=== PATIENT | male | born 1995 | race Caucasian/White ===

== ENCOUNTER 2019-03-10 02:03 | Emergency (ER) | payer OTHER ==
[~2019-03-10] VITALS: Ht 188 cm; Wt 120.5 kg
[2019-03-10] MEDS ORDERED: DOXYCYCLINE HYCLATE 100 MG TAB PO ONE (04:30)
[2019-03-10 04:37] VITALS: BP 127/73
== END 2019-03-10 04:55 | disposition home or self-care (01) ==
LOC: M ED 02:03
DX: S80.862A Insect bite (nonvenomous), left lower leg, initial encounter (principal); W57.XXXA Bitten or stung by nonvenomous insect and other nonvenomous arthropods, initial encounter; Y92.89 Other specified places as the place of occurrence of the external cause

== ENCOUNTER 2019-09-17 14:58 | Emergency (ER) | payer OTHER ==
[~2019-09-17] VITALS: Ht 188 cm; Wt 118.8 kg
[2019-09-17 15:45] LABS: BASO % 0.3 % (0.0-1.0); EOS % 0.2 % (0.0-3.0); HEMATOCRIT 45.4 % (42.0-52.0); HEMOGLOBIN 15.1 g/dl (13.5-17.5); LYMPH % 17.6 % (24.0-44.0); MEAN CORPUSCULAR HEMOGLOBIN 31.1 pg (27.0-33.0); MEAN CORPUSCULAR HGB CONC 33.3 g/dl (32.0-36.5); MEAN CORPUSCULAR VOLUME 93.6 fl (80.0-96.0); MONO # 0.4 10^3/uL (0.0-0.8); MONO % 6.5 % (0.0-5.0); NEUTROPHILS # 4.4 10^3/uL (1.5-8.5); NEUTROPHILS % 75.2 % (36.0-66.0); PLATELET COUNT, AUTOMATED 187 10^3/uL (150-450); RED BLOOD COUNT 4.85 10^6/uL (4.30-6.10); WHITE BLOOD COUNT 5.8 10^3/uL (4.0-10.0)
--- NOTE | 2019-09-17 16:04 | REP ---
CT brain: 09/17/2019. Indication: Syncope. Comparison: None. Technique: Unenhanced axial CT images of the brain were obtained from skull base to vertex. Findings: There is no acute intracranial hemorrhage, acute cortical infarction or hydrocephalous. Small CSF attenuating fluid collection is noted posterior to the left cerebellum. There is no significant fluid within the visualized paranasal sinuses/mastoid air cells. There is no shift of the midline structures. Impression: No acute intracranial process. Small focus of extra-axial low attenuation posterior to the left cerebellum most likely representing an arachnoid cyst. Electronically Signed by Kp Medina DO 09/17/2019 03:55 P
[2019-09-17 16:15] LABS: BLOOD UREA NITROGEN 16 MG/DL (7-18); CALCIUM LEVEL 9.6 MG/DL (8.5-10.1); CARBON DIOXIDE LEVEL 29 MEQ/L (21-32); CHLORIDE LEVEL 105 MEQ/L (98-107); CREATININE FOR GFR 1.07 MG/DL (0.70-1.30); FREE T4 0.89 NG/DL (0.76-1.46); GLOMERULAR FILTRATION RATE > 60.0 (>60); GLUCOSE, FASTING 95 MG/DL (70-100); MAGNESIUM LEVEL 2.1 MG/DL (1.8-2.4); POTASSIUM SERUM 4.4 MEQ/L (3.5-5.1); SODIUM LEVEL 141 MEQ/L (136-145)
[2019-09-17 16:48] VITALS: BP 129/76
--- NOTE | 2019-09-18 22:01 | ECGEPIP ---
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
== END 2019-09-17 16:49 | disposition home or self-care (01) ==
LOC: M ED 14:58
DX: R42 Dizziness and giddiness (principal); I45.19 Other right bundle-branch block

== ENCOUNTER 2019-12-11 10:08 | Emergency (ER) | payer OTHER ==
[~2019-12-11] VITALS: Ht 188 cm; Wt 118.7 kg
[2019-12-11 12:39] VITALS: BP 129/70
[2019-12-11] MEDS ORDERED: IBUPROFEN 600 MG TAB PO ONE (12:45)
[2019-12-11] MEDS ORDERED: ACETAMINOPHEN 325 MG TAB PO ONE (12:45)
== END 2019-12-11 12:51 | disposition home or self-care (01) ==
LOC: M ED 10:08
DX: J02.9 Acute pharyngitis, unspecified (principal); B34.9 Viral infection, unspecified

== ENCOUNTER → 2020-02-01 | Outpatient (REF) | payer OTHER ==
[2020-02-01 15:27] LABS: BASO % 0.7 % (0.0-1.0); EOS # 0.1 10^3/uL (0.0-0.5); EOS % 1.2 % (0.0-3.0); HEMATOCRIT 45.3 % (42.0-52.0); HEMOGLOBIN 15.2 g/dl (13.5-17.5); LYMPH # 1.4 10^3/uL (1.5-5.0); LYMPH % 23.3 % (24.0-44.0); MEAN CORPUSCULAR HEMOGLOBIN 31.3 pg (27.0-33.0); MEAN CORPUSCULAR HGB CONC 33.6 g/dl (32.0-36.5); MEAN CORPUSCULAR VOLUME 93.4 fl (80.0-96.0); MONO # 0.5 10^3/uL (0.0-0.8); MONO % 8.7 % (0.0-5.0); NEUTROPHILS # 3.9 10^3/uL (1.5-8.5); NEUTROPHILS % 65.6 % (36.0-66.0); PLATELET COUNT, AUTOMATED 177 10^3/uL (150-450); RED BLOOD COUNT 4.85 10^6/uL (4.30-6.10)
[2020-02-01 15:43] LABS: HEMOGLOBIN A1c 5.8 %
[2020-02-01 15:58] LABS: ALBUMIN 4.1 GM/DL (3.2-5.2); ALT/SGPT 44 U/L (12-78); BILIRUBIN,TOTAL 0.3 MG/DL (0.2-1.0); BLOOD UREA NITROGEN 15 MG/DL (7-18); CALCIUM LEVEL 9.5 MG/DL (8.5-10.1); CARBON DIOXIDE LEVEL 30 MEQ/L (21-32); CHLORIDE LEVEL 105 MEQ/L (98-107); CHOLESTEROL LEVEL 268 MG/DL (<200); CHOLESTEROL RISK RATIO 7.243 (<5); CREATININE FOR GFR 1.05 MG/DL (0.70-1.30); GLOMERULAR FILTRATION RATE > 60.0 (>60); GLUCOSE, FASTING 86 MG/DL (70-100); HDL CHOLESTEROL 37 MG/DL (>40); LDL CHOLESTEROL 192 MG/DL (<100); NON-HDL-C 231 MG/DL; POTASSIUM SERUM 4.8 MEQ/L (3.5-5.1); SODIUM LEVEL 139 MEQ/L (136-145); TOTAL PROTEIN 7.6 GM/DL (6.4-8.2); TRIGLYCERIDES LEVEL 194 MG/DL (<150)
[2020-02-01 16:59] LABS: HIV 1&2 SCREEN CENTAUR NEGATIVE (NEGATIVE)
[2020-02-04 11:00] LABS: HEPATITIS C VIRUS ABY INDEX 0.1 INDEX (<0.8)
== END ==
LOC: M SFHCPLAZ 14:00
DX: Z00.00 Encounter for general adult medical examination without abnormal findings (principal)

== ENCOUNTER 2020-04-18 14:27 | Emergency (ER) | payer OTHER ==
[~2020-04-18] VITALS: Ht 188 cm; Wt 114.6 kg
[2020-04-18] MEDS ORDERED: LIDOCAINE 2% MDV 20ML VIAL As Ordered ONE (15:27)
[2020-04-18] MEDS ORDERED: BOOSTRIX/ADACEL VACCINE (DIPHTH/PERTUSS/ACELL/TETANUS) 0.5ML SYR IM ONE (15:30)
[2020-04-18] MEDS ORDERED: LIDOCAINE 2% MDV 20ML VIAL SC ONE (15:30)
[2020-04-18 16:23] VITALS: BP 135/88
--- NOTE | 2020-04-18 16:32 | REP ---
RIGHT HAND, FOUR VIEWS: There is no evidence of an acute fracture, dislocation, or intrinsic bone disease. No radiopaque foreign body is seen in the soft tissues. IMPRESSION: No fracture or dislocation. Electronically Signed by Chuy Amaro MD 04/21/2020 09:48 A
== END 2020-04-18 16:24 | disposition home or self-care (01) ==
LOC: M ED 14:27
DX: S61.210A Laceration without foreign body of right index finger without damage to nail, initial encounter (principal); W25.XXXA Contact with sharp glass, initial encounter; Y92.099 Unspecified place in other non-institutional residence as the place of occurrence of the external cause; Y93.9 Activity, unspecified; Y99.9 Unspecified external cause status

== ENCOUNTER 2020-10-14 23:11 | Emergency (ER) | payer OTHER ==
[~2020-10-14] VITALS: Ht 188 cm; Wt 121.5 kg
--- OUTSIDE RECORDS SUMMARY | 2020-10-14 23:19 | CCD ---
Author Author [facility] Address Unknown Phone Unavailable Support Name Relationship Address Phone PAUL HANSEN Next Of Kin [address] [place] [address] [facility]* Next Of Kin [address] [place] [address] DANIELA Next Of Kin [address] [place] [address] paul hansen ECON Unknown Unavailable Re-disclosure Warning The records that you are about to access may contain information from federally-assisted alcohol or drug abuse programs. If such information is present, then the following federally mandated warning applies: This information has been disclosed to you from records protected by federal confidentiality rules (42 CFR part 2). The federal rules prohibit you from making any further disclosure of this information unless further disclosure is expressly permitted by the written consent of the person to whom it pertains or as otherwise permitted by 42 CFR part 2. A general authorization for the release of medical or other information is NOT sufficient for this purpose. The Federal rules restrict any use of the information to criminally investigate or prosecute any alcohol or drug abuse patient.The records that you are about to access may contain highly sensitive health information, the redisclosure of which is protected by Article 27-F of the [facility] Public Health law. If you continue you may have access to information: Regarding HIV / AIDS; Provided by facilities licensed or operated by the [facility] Office of Mental Health; or Provided by the [facility] Office for People With Developmental Disabilities. If such information is present, then the following [facility] mandated warning applies: This information has been disclosed to you from confidential records which are protected by state law. State law prohibits you from making any further disclosure of this information without the specific written consent of the person to whom it pertains, or as otherwise permitted by law. Any unauthorized further disclosure in violation of state law may result in a fine or fdc sentence or both. A general authorization for the release of medical or other information is NOT sufficient authorization for further disc losure. Encounters Encounter Providers Location Date Indications Data Source(s ) Unknown [address] [facility] [address] 04/25/2020 12:00:00 AM EDT eCW1 ([facility]) [facility] [place] [address] [facility] [address] 02/04/2020 12:00:00 AM EDT eCW1 ([facility]) [facility] [place] [address] [facility] [address] 02/04/2020 12:00:00 AM EDT eCW1 ([facility]) [facility] Resident [address] [place] [address] 02/01/2020 12:00:00 AM EDT eCW1 ([facility]) Outpatient 10/07/2019 06:00:00 PM EST [facility] Medications Medication Brand Name Start Date Product Form Dose Route Admi nistrative Instructions Pharmacy Instructions Status Indications Reaction Description Data Source(s) atorvastatin 40 MG Oral Tablet Atorvastatin Calcium 40 MG Atorvastatin Calcium 40 MG 04/25/2020 12:00:00 AM EDT 1.0 {tablet} activ e Atorvastatin Calcium 40 MG eCW1 ([facility]) aluminum chloride 200 MG/ML Topical Solution [Drysol] Drysol 20 % Drysol 20 % 02/04/2020 12:00:00 AM EDT 1.0 {application_at_bedtime} active Drysol 20 % eCW1 ([facility]) aluminum chloride 200 MG/ML Topical Solution [Drysol] Drysol 20 % Drysol 20 % 02/04/2020 12:00:00 AM EDT active 1 application at bedtime eCW1 ([facility]) Qbrexza 2.4 % Qbrexza 2.4 % 02/01/2020 12:00:00 AM EDT active as directed eCW1 ([facility]) aripiprazole 10 MG Oral Tablet [Abilify] Abilify 10 MG Abili fy 10 MG 02/01/2020 12:00:00 AM EDT 1.0 {tablet} active Ab ilify 10 MG eCW1 ([facility]) aripiprazole 10 MG Oral Tablet [Abilify] Abilify 10 MG Abili fy 10 MG 02/01/2020 12:00:00 AM EDT active 1 tablet eCW1 ([facility]) Aluminum Chloride Hexahydrate - Aluminum Chloride Hexahydrat e - 02/01/2020 12:00:00 AM EDT active as direc nelida eCW1 ([facility]) Aluminum Chloride Hexahydrate - Aluminum Chloride Hexahydrat e - 02/01/2020 12:00:00 AM EDT active Aluminum Chloride Hexahydrate - eCW1 ([facility]) Qbrexza 2.4 % Qbrexza 2.4 % 02/01/2020 12:00:00 AM EDT active Qbrexza 2.4 % eCW1 ([facility]) Insurance Providers Payer name Policy type / Coverage type Policy ID Covered constitution party ID Covered constitution party's relationship to huynh Policy Huynh Plan Information [facility] [id number] SP [id number] 100 [facility] [id number] SP [id number] [facility] [id number] S [id number] Problems, Conditions, and Diagnoses Code Display Name Description Problem Type Effective Dates Data Source(s) E78.00 30699274 Hypercholesterolemia Problem 02/08/2020 12:0 0:00 AM EDT eCW1 ([facility]) E78.1 739616098 Hypertriglyceridemia Problem 02/08/2020 12:0 0:00 AM EDT eCW1 ([facility]) E78.00 31485043 Hypercholesterolemia Problem 02/08/2020 12:0 0:00 AM EDT eCW1 ([facility]) E78.1 [id number] Hypertriglyceridemia Problem 02/08/2020 12:0 0:00 AM EDT eCW1 ([facility]) F95.2 [id number] Tourette syndrome Problem 02/07/2020 12:00:0 0 AM EDT eCW1 ([facility]) F95.2 1283493 Tourette syndrome Problem 02/07/2020 12:00:0 0 AM EDT eCW1 ([facility]) F31.70 [id number] Bipolar affective disorder in remission P roblem 02/01/2020 12:00:00 AM EDT eCW1 ([facility]) F31.70 [id number] Bipolar affective disorder in remission P roblem 02/01/2020 12:00:00 AM EDT eCW1 ([facility]) Social History Code Duration Value Status Description Data Source(s ) Smoking 02/01/2020 12:00:00 AM EDT Never Smoker completed Never S moker eCW1 ([facility]) Vital Signs ID Date Data Source UNK Name Value Range Interpretation Code Description Data Source(s) Diastolic blood pressure 78 mm[Hg] 78 mm[Hg] eCW1 ([facility]) Systolic blood pressure 120 mm[Hg] 120 mm[Hg] e CW1 ([facility]) Body temperature 98.0 [degF] 98.0 [degF] eCW1 ( [facility]) Respiratory rate 20 /min 20 /min eCW1 ([facility]) Heart rate 96 /min 96 /min eCW1 ([facility]) Body mass index (BMI) [Ratio] 33.19 kg/m2 33.19 kg/m2 eCW1 ([facility]) Body height 75 [in_us] 75 [in_us] eCW1 ([facility]) Body weight Measured 265.6 [lb_av] 265.6 [lb_av ] eCW1 ([facility]) Patient Treatment Plan of Care Planned Activity Planned Date Details Description Data Source (s) atorvastatin 40 MG Oral Tablet 04/25/2020 12:00:00 AM EDT eCW1 ([facility]) aluminum chloride 200 MG/ML Topical Solution [Drysol] 02/04/2020 12:00:00 AM EDT eCW1 ([facility]) aluminum chloride 200 MG/ML Topical Solution [Drysol] 02/04/2020 12:00:00 AM EDT eCW1 ([facility]) aripiprazole 10 MG Oral Tablet [Abilify] 02/01/2020 12:00:00 AM EDT eCW1 ([facility]) Aluminum Chloride Hexahydrate - 02/01/2020 12:00:00 AM EDT eCW1 ([facility]) Qbrexza 2.4 % 02/01/2020 12:00:00 AM EDT eCW1 ([facility]) Qbrexza 2.4 % 02/01/2020 12:00:00 AM EDT eCW1 ([facility]) Aluminum Chloride Hexahydrate - 02/01/2020 12:00:00 AM EDT eCW1 ([facility]) aripiprazole 10 MG Oral Tablet [Abilify] 02/01/2020 12:00:00 AM EDT eCW1 ([facility])
[2020-10-15] MEDS ORDERED: METOCLOPRAMIDE 10 MG TAB PO ONE
[2020-10-15] MEDS ORDERED: NAPROXEN 250 MG TAB PO ONE
--- NOTE | 2020-10-15 00:36 | REPVR ---
PROCEDURE INFORMATION: Exam: CT Head Without Contrast Exam date and time: 10/14/2020 11:55 PM Age: 25 years old Clinical indication: Injury or trauma; Hit head; Concussion/head injury; Additional info: Blunt trauma, contusion. Pain, blurry vision TECHNIQUE: Imaging protocol: Computed tomography of the head without contrast. Radiation optimization: All CT scans at this facility use at least one of these dose optimization techniques: automated exposure control; mA and/or kV adjustment per patient size (includes targeted exams where dose is matched to clinical indication); or iterative reconstruction. COMPARISON: CT Head without contrast 09/17/2019 3:24 PM FINDINGS: Brain: There is a left retrocerebellar CSF density extra-axial lesion, which is stable compared to the prior CT head on 09/17/2019, and likely represents an arachnoid cyst that measures approximately 4 cm in transverse dimension. No significant mass effect, midline shift, or herniation is noted. No acute intracranial hemorrhage is seen. There is no CT evidence for an acute large vessel territorial infarct. Cerebral ventricles: No ventriculomegaly. Bones/joints: The skull is intact. No suspicious osteolytic or osteoblastic lesion. Paranasal sinuses: There is an 8 mm mucous retention cyst in the right maxillary sinus. No air-fluid levels are seen in the imaged sinuses. The maxillary sinuses were not fully imaged. Mastoid air cells: Clear. Soft tissues: Unremarkable. No soft tissue fluid collection. IMPRESSION: No acute intracranial abnormality. Electronically signed by: Mumtaz Gonzalez On 10/15/2020 00:36:04 AM
[2020-10-15] MEDS ORDERED: NAPR-837 PO (00:47)
--- OUTSIDE RECORDS SUMMARY | 2020-10-15 00:59 | CCD ---
Author Author [facility] Organization [facility] Address Unknown Phone Unavailable Support Name Relationship Address Phone [facility] Next Of Kin [address] [place] [address] PAUL HANSEN Next Of Kin [address] [place] [address] [facility]* Next Of Kin [address] [place] [address] DANIELA Next Of Kin [address] [place] [address] paul hansen ECON Unknown Unavailable Re-disclosure Warning [...] is protected by Article 27-F of the [facility] Public Health law. If you continue you may have access to information: Regarding HIV / AIDS; Provided by facilities licensed or operated by the [facility] Office of Mental Health; or Provided by the [facility] Office for People With Developmental Disabilities. If such information is present, then the following [facility] mandated warning applies: This information has been [...] law may result in a fine or senior care sentence or both. A general authorization for the release of medical or other information is NOT sufficient authorization for further disc losure. Encounters Encounter Providers Location Date Indications Data Source(s ) Unknown [address] [facility], [place] [address] 04/25/2020 12:00:00 AM EDT eCW1 ([facility]) [facility] [place] [address] [facility] [address] 02/04/2020 12:00:00 AM EDT [facility] [address] [facility] [place] [address] 02/04/2020 12:00:00 AM EDT eCW1 ([facility]) [facility] G[facility] Resident [address] [place] [address] 02/01/2020 12:00:00 AM EDT eCW1 ([facility]) Outpatient 10/07/2019 06:00:00 PM EST [facility] Medications Medication Brand Name Start Date Product Form Dose Route Admi nistrative Instructions Pharmacy Instructions Status Indications Reaction Description Data Source(s) atorvastatin 40 MG Oral Tablet Atorvastatin Calcium 40 MG Atorvastatin Calcium 40 MG 04/25/2020 12:00:00 AM EDT 1.0 {tablet} activ e Atorvastatin Calcium 40 MG eCW1 ([facility]) aluminum chloride 200 MG/ML Topical Solution [Drysol] Drysol 20 % Drysol 20 % 02/04/2020 12:00:00 AM EDT 1.0 {application_at_bedtime} active Drysol 20 % eCW1 ([facility]) aluminum chloride 200 MG/ML Topical Solution [Drysol] Drysol 20 % Drysol 20 % 02/04/2020 12:00:00 AM EDT active 1 application at bedtime eCW1 ([facility]) Qbrexza 2.4 % Qbrexza 2.4 % 02/01/2020 12:00:00 AM EDT active as directed eCW1 ([facility]) aripiprazole 10 MG Oral Tablet [Abilify] Abilify 10 MG Abili fy 10 MG 02/01/2020 12:00:00 AM EDT 1.0 {tablet} active Ab ilify 10 MG eCW1 ([facility]) aripiprazole 10 MG Oral Tablet [Abilify] Abilify 10 MG Abili fy 10 MG 02/01/2020 12:00:00 AM EDT active 1 tablet eCW1 ([facility]) Aluminum Chloride Hexahydrate - Aluminum Chloride Hexahydrat e - 02/01/2020 12:00:00 AM EDT active as direc nelida eCW1 ([facility]) Aluminum Chloride Hexahydrate - Aluminum Chloride Hexahydrat e - 02/01/2020 12:00:00 AM EDT active Aluminum Chloride Hexahydrate - eCW1 ([facility]) Qbrexza 2.4 % Qbrexza 2.4 % 02/01/2020 12:00:00 AM EDT active Qbrexza 2.4 % eCW1 ([facility]) Insurance Providers Payer name Policy type / Coverage type Policy ID Covered green party ID Covered green party's relationship to huynh Policy Huynh Plan Information [facility] [id number] SP [id number] 100 [facility] [id number] SP [id number] [facility] [id number] S [id number] Problems, Conditions, and Diagnoses Code Display Name Description Problem Type Effective Dates Data Source(s) E78.00 [id number] Hypercholesterolemia Problem 02/08/2020 12:0 0:00 AM EDT eCW1 ([facility]) E78.1 455530338 Hypertriglyceridemia Problem 02/08/2020 12:0 0:00 AM EDT eCW1 ([facility]) E78.00 73772331 Hypercholesterolemia Problem 02/08/2020 12:0 0:00 AM EDT eCW1 ([facility]) E78.1 [id number] Hypertriglyceridemia Problem 02/08/2020 12:0 0:00 AM EDT eCW1 ([facility]) F95.2 0524130 Tourette syndrome Problem 02/07/2020 12:00:0 0 AM EDT eCW1 ([facility]) F95.2 4661949 Tourette syndrome Problem 02/07/2020 12:00:0 0 AM EDT eCW1 ([facility]) F31.70 [id number] Bipolar affective disorder in remission P roblem 02/01/2020 12:00:00 AM EDT eCW1 ([facility]) F31.70 [id number] Bipolar affective disorder in remission P roblem 02/01/2020 12:00:00 AM EDT eCW1 ([facility]) Social History Code Duration Value Status Description Data Source(s ) Smoking 02/01/2020 12:00:00 AM EDT Never Smoker completed Never S moker eCW1 ([facility]) Vital Signs ID Date Data Source UNK Name Value Range Interpretation Code Description Data Source(s) Diastolic blood pressure 78 mm[Hg] 78 mm[Hg] eCW1 ([facility]) Systolic blood pressure 120 mm[Hg] 120 mm[Hg] e CW1 ([facility]) Body temperature 98.0 [degF] 98.0 [degF] eCW1 ( [facility]) Respiratory rate 20 /min 20 /min eCW1 ([facility]) Heart rate 96 /min 96 /min eCW1 ([facility]) Body mass index (BMI) [Ratio] 33.19 kg/m2 33.19 kg/m2 eCW1 ([facility]) Body height 75 [in_us] 75 [in_us] eCW1 ([facility]) Body weight Measured 265.6 [lb_av] 265.6 [lb_av ] eCW1 ([facility]) Patient Treatment Plan of Care Planned Activity Planned Date Details Description Data Source (s) atorvastatin 40 MG Oral Tablet 04/25/2020 12:00:00 AM EDT eCW1 ([facility]) aluminum chloride 200 MG/ML Topical Solution [Drysol] 02/04/2020 12:00:00 AM EDT eCW1 ([facility]) aluminum chloride 200 MG/ML Topical Solution [Drysol] 02/04/2020 12:00:00 AM EDT eCW1 ([facility]) aripiprazole 10 MG Oral Tablet [Abilify] 02/01/2020 12:00:00 AM EDT eCW1 ([facility]) Aluminum Chloride Hexahydrate - 02/01/2020 12:00:00 AM EDT eCW1 ([facility]) Qbrexza 2.4 % 02/01/2020 12:00:00 AM EDT eCW1 ([facility]) Qbrexza 2.4 % 02/01/2020 12:00:00 AM EDT eCW1 ([facility]) Aluminum Chloride Hexahydrate - 02/01/2020 12:00:00 AM EDT eCW1 ([facility]) aripiprazole 10 MG Oral Tablet [Abilify] 02/01/2020 12:00:00 AM EDT eCW1 ([facility])
[2020-10-15 01:17] VITALS: BP 148/88
== END 2020-10-15 01:19 | disposition home or self-care (01) ==
LOC: M ED 23:11
DX: S06.0X0A Concussion without loss of consciousness, initial encounter (principal); W22.8XXA Striking against or struck by other objects, initial encounter; Y92.89 Other specified places as the place of occurrence of the external cause; Y93.89 Activity, other specified; Y99.9 Unspecified external cause status

== ENCOUNTER 2021-06-25 18:18 | Emergency (ER) | payer OTHER ==
[~2021-06-25] VITALS: Ht 188 cm; Wt 122.7 kg
[~2021-06-25 18:18] MED LIST: NAPR-837 PO
[2021-06-25 18:19] VITALS: BP 133/83
== END 2021-06-26 01:23 | disposition left against medical advice (07) ==
LOC: M ED 18:18
DX: Z53.21 Procedure and treatment not carried out due to patient leaving prior to being seen by health care provider (principal)

== ENCOUNTER 2021-08-22 08:34 | Emergency (ER) | payer OTHER ==
[~2021-08-22] VITALS: Ht 188 cm; Wt 125.2 kg
--- OUTSIDE RECORDS SUMMARY | 2021-08-22 08:40 | CCD ---
Author Author [facility] Organization [facility] Address Unknown Phone Unavailable Care Team Providers Care Executive Receptionist Name Role Phone Maring, Will PA Unavailable Unavailable Maring, Will PA Unavailable Unavailable Maring, Will PA Unavailable Unavailable Maring, Will PA Unavailable Unavailable Maring, Will PA Unavailable Unavailable Maring, Will PA Unavailable Unavailable Maring, Will PA Unavailable Unavailable Maring, Will PA Unavailable Unavailable Maring, Will PA Unavailable Unavailable Maring, Will PA Unavailable Unavailable Maring, Will PA Unavailable Unavailable Maring, Will PA Unavailable Unavailable Maring, Will PA Unavailable Unavailable Maring, Will PA Unavailable Unavailable Maring, Will PA Unavailable Unavailable Maring, Will PA Unavailable Unavailable Feola, T Kylah PA Unavailable Unavailable Feola, T Kylah PA Unavailable Unavailable Feola, T Kylah PA Unavailable Unavailable Feola, T Kylah PA Unavailable Unavailable Feola, T Kylah PA Unavailable Unavailable Feola, T Kylah PA Unavailable Unavailable Feola, T Kylah PA Unavailable Unavailable Feola, T Kylah PA Unavailable Unavailable Feola, T Kylah PA Unavailable Unavailable Feola, T Kylah PA Unavailable Unavailable Feola, T Kylah PA Unavailable Unavailable Feola, T Kylah PA Unavailable Unavailable Feola, T Kylah PA Unavailable Unavailable Feola, T Kylah PA Unavailable Unavailable Feola, T Kylah PA Unavailable Unavailable Feola, T Kylah PA Unavailable Unavailable Feola, T Kylah PA Unavailable Unavailable Feola, T Kylah PA Unavailable Unavailable Feola, T Kylah PA Unavailable Unavailable Feola, T Kylah PA Unavailable Unavailable Feola, T Kylah PA Unavailable Unavailable Feola, T Kylah PA Unavailable Unavailable Feola, T Kylah PA Unavailable Unavailable Feola, T Kylah PA Unavailable Unavailable Feola, T Kylah PA Unavailable Unavailable Feola, T Kylah PA Unavailable Unavailable Feola, T Kylah PA Unavailable Unavailable Feola, T Kylah PA Unavailable Unavailable Feola, T Kylah PA Unavailable Unavailable Feola, T Kylah PA Unavailable Unavailable Feola, T Kylah PA Unavailable Unavailable Feola, T Kylah PA Unavailable Unavailable Feola, T Kylah PA Unavailable Unavailable Feola, T Kylah PA Unavailable Unavailable Feola, T Kylah PA Unavailable Unavailable Feola, T Kylah PA Unavailable Unavailable Feola, T Kylah PA Unavailable Unavailable Feola, T Kylah PA Unavailable Unavailable Feola, T Kylah PA Unavailable Unavailable Feola, T Kylah PA Unavailable Unavailable Feola, T Kylah PA Unavailable Unavailable SORTO, G EDWARD RPA Unavailable Unavailable SORTO, G EDWARD RPA Unavailable Unavailable SORTO, G EDWARD RPA Unavailable Unavailable SORTO, G EDWARD RPA Unavailable Unavailable SORTO, G EDWARD RPA Unavailable Unavailable SORTO, G EDWARD RPA Unavailable Unavailable SORTO, G EDWARD RPA Unavailable Unavailable SORTO, G EDWARD RPA Unavailable Unavailable SORTO, G EDWARD RPA Unavailable Unavailable SORTO, G EDWARD RPA Unavailable Unavailable SORTO, G EDWARD RPA Unavailable Unavailable SORTO, G EDWARD RPA Unavailable Unavailable SORTO, G EDWARD RPA Unavailable Unavailable SORTO, G EDWARD RPA Unavailable Unavailable SORTO, G EDWARD RPA Unavailable Unavailable SORTO, G EDWARD RPA Unavailable Unavailable SORTO, G EDWARD RPA Unavailable Unavailable SORTO, G EDWARD RPA Unavailable Unavailable SORTO, G EDWARD RPA Unavailable Unavailable SORTO, G EDWARD RPA Unavailable Unavailable SORTO, G EDWARD RPA Unavailable Unavailable SORTO, G EDWARD RPA Unavailable Unavailable SORTO, G EDWARD RPA Unavailable Unavailable SORTO, G EDWARD RPA Unavailable Unavailable SORTO, G EDWARD RPA Unavailable Unavailable SOROT, G EDWARD RPA Unavailable Unavailable SORTO, G EDWARD RPA Unavailable Unavailable SORTO, G EDWARD RPA Unavailable Unavailable SORTO, G EDWARD RPA Unavailable Unavailable SORTO, G EDWARD RPA Unavailable Unavailable SORTO, G EDWARD RPA Unavailable Unavailable SORTO, G EDWARD RPA Unavailable Unavailable SORTO, G EDWARD RPA Unavailable Unavailable SORTO, G EDWARD RPA Unavailable Unavailable SORTO, G EDWARD RPA Unavailable Unavailable SORTO, G EDWARD RPA Unavailable Unavailable SORTO, G EDWARD RPA Unavailable Unavailable Spear, M Christopher PA-C Unavailable Unavailable Spear, M Christopher PA-C Unavailable Unavailable Spear, M Christopher PA-C Unavailable Unavailable Spear, M Christopher PA-C Unavailable Unavailable Spear, M Christopher PA-C Unavailable Unavailable Spear, M Christopher PA-C Unavailable Unavailable Spear, M Christopher PA-C Unavailable Unavailable Spear, M Christopher PA-C Unavailable Unavailable Spear, M Christopher PA-C Unavailable Unavailable Spear, M Christopher PA-C Unavailable Unavailable Spear, M Christopher PA-C Unavailable Unavailable Spear, M Christopher PA-C Unavailable Unavailable Spear, M Christopher PA-C Unavailable Unavailable Spear, M Christopher PA-C Unavailable Unavailable Spear, M Christopher PA-C Unavailable Unavailable Spear, M Christopher PA-C Unavailable Unavailable Spear, M Christopher PA-C Unavailable Unavailable Spear, M Christopher PA-C Unavailable Unavailable Spear, M Christopher PA-C Unavailable Unavailable Spear, M Christopher PA-C Unavailable Unavailable Spear, M Christopher PA-C Unavailable Unavailable Spear, M Christopher PA-C Unavailable Unavailable Spear, M Christopher PA-C Unavailable Unavailable Spear, M Christopher PA-C Unavailable Unavailable Spear, M Christopher PA-C Unavailable Unavailable Spear, M Christopher PA-C Unavailable Unavailable Re-disclosure Warning The records that you [...] is protected by Article 27-F of the [facility] Public Health law. If you continue you may have access to information: Regarding HIV / AIDS; Provided by facilities licensed or operated by the [facility] Office of Mental Health; or Provided by the [facility] Office for People With Developmental Disabilities. If such information is present, then the following [facility] mandated warning applies: This information has been [...] law may result in a fine or prison sentence or both. A general authorization for the release of medical or other information is NOT sufficient authorization for further disc losure. Encounters Encounter Providers Location Date Indications Data Source(s ) Outpatient Attender: Will LLOYD 08/06/20 02:16:12 PM EDT - 08/06/2021 03:56:20 PM EDT [facility] ([facility] ) Outpatient 05/28/2021 03:45:56 PM EDT - 021 04:36:14 PM EDT [facility] ([facility]) Outpatient Attender: Robert Spear PA-C 01/15/2021 03:40:48 PM EDT - 01/15/2021 04:23:58 PM EDT [facility] ([facility]) [place] [address] [facility] [address] [place] [address] 01/14/2021 12:00:00 AM EDT eCW1 ([facility]) [place] [address] [facility] [place] [address] 01/01/2021 12:00:00 AM EDT eCW1 ([facility]) Outpatient Attender: CARMEN SORTO RPA 12/30 12:54:41 PM EDT - 12/30/2020 01:42:39 PM EDT [facility] ([facility] ) Outpatient 12/30/2020 12:25:25 PM EDT [facility] ([facility]) Outpatient 12/30/2020 12:21:20 PM EDT [facility] ([facility]) Outpatient Attender: Kylah LLOYD 021 01:57:02 PM EST - 12/08/2020 02:45:14 PM EST [facility] ([facility] ) Immunizations Vaccine Date Status Description Data Source(s) COVID-19 VACCINE Moderna 04/28/2021 12:00:00 AM EDT completed [facility] Vaccine Series Complete: YESThis Data wa s Submitted to [facility] Via [employer]. COVID-19 VACCINE Moderna 02/05/2021 12:00:00 AM EDT completed [facility] Vaccine Series Complete: NOThis Data was Submitted to [facility] [employer]. Medications Medication Brand Name Start Date Product Form Dose Route Admi nistrative Instructions Pharmacy Instructions Status Indications Reaction Description Data Source(s) 12 HR Guaifenesin 600 MG Extended Release Oral Tablet [Mucinex] Mucinex 600 MG Mucinex 600 MG 01/01/2021 12:00:00 AM EDT 1.0 {tablet_as_needed} active Mucinex 600 MG eCW1 ([facility]) 12 HR Guaifenesin 600 MG Extended Release Oral Tablet [Mucinex] Mucinex 600 MG Mucinex 600 MG 01/01/2021 12:00:00 AM EDT 1.0 {tablet_as_needed} active Mucinex 600 MG eCW1 ([facility]) benzonatate 100 MG Oral Capsule [Tessalon Perles] Hafsa dov Perles 100 MG Tessalon Perles 100 MG 01/01/2021 12:00:00 AM EDT 1.0 {capsule_as_nee ded} active Tessalon Perles 100 MG eCW1 ([facility]) benzonatate 100 MG Oral Capsule [Tessalon Perles] Hafsa dov Perles 100 MG Tessalon Perles 100 MG 01/01/2021 12:00:00 AM EDT 1.0 {capsule_as_nee ded} active Tessalon Perles 100 MG eCW1 ([facility]) Insurance Providers Payer name Policy type / Coverage type Policy ID Covered republican ID Covered republican's relationship to huynh Policy Huynh Plan Information [employer] [id number] Self [id number] [place] [employer] [id number] Self [id number] [id number] MARTH[place] emp [id number] Employee [id number] [facility] [id number] SP [id number] 100 [facility] O [id number] S [id number] [facility] [id number] SP [id number] Problems, Conditions, and Diagnoses No Information Surgeries/Procedures No Information Results ID Date Data Source [id number] 08/10/2021 12:00:00 AM EST [facility] Name Value Range Interpretation Code Description Data Aneta rce(s) Supporting Document(s) SARS-CoV2 Rapid Antigen Negative [facility] This lab was ordered by [facility] and reported by [facility]. ID Date Data Source [id number] 05/28/2021 04:30:00 PM EDT [facility] Name Value Range Interpretation Code Description Data Aneta rce(s) Supporting Document(s) SARS-CoV-2 RNA Resp Ql MAMTA+probe NOT DETECTED [facility] This lab was ordered by B[facility] bonilla and reported by [facility]. ID Date Data Source [id number] 01/15/2021 12:00:00 AM EDT [facility] Name Value Range Interpretation Code Description Data Aneta rce(s) Supporting Document(s) Carestart Rapid COVID Antigen Test Negative [facility] This lab was reported by [facility]. ID Date Data Source [id number] 01/01/2021 06:21:00 AM EDT [facility] Name Value Range Interpretation Code Description Data Aneta rce(s) Supporting Document(s) COVID-19 RT-PCR JACK FRAME TENDER SWAB Detected Abnormal (applies to no n-numeric results) [facility] A detected test result is interpreted as a positive test result forCOVID-19. This indicates that RNA from SARS-CoV-2 was detected, andthe patient is infected with the virus and presumed to be contagious.Laboratory test results should always be considered in the context ofclinical observations and epidemiological data in making a finaldiagnosis and patient management decisions. Results will be reportedto government agencies as required.This test has received Emergency Use Authorization (EUA). We will continue to follow federal and state requirements for COVID-19 reporting. This test has been authorized only for the detection of RNAfrom SARS-CoV-2 virus and diagnosis of SARS-CoV-2 virus infection, notfor any other viruses or pathogens. This test is only authorized for the duration of the declaration that circumstances exist justifying the authorization of the emergency use of in vitro diagnostic tests for detection of SARS-CoV-2 virus and/or diagnosis of SARS-CoV-2 virusinfection under section 564 (b)(1) of the Act, 21 U.S.C. section 360bbb-3(b)(1), unless the authorization is terminated or revoked sooner. We will continue to follow federal and state requirements for both notification of results and any confirmatory testing that is required by another agency. This test was developed and its performance characteristics determined by [employer] and verified at [facility]. It has not been cleared or approved by the U.S. Food and Drug Administration for diagnostic use. This test has been authorized by FDA under an EUA for use by authorized laboratories. Results should be used in conjunction with clinical findings, and should not form the sole basis for a diagnosis or treatment decision. Methods: SARS-CoV-2 Multiplex RT-PCR Assay ID Date Data Source [id number] 12/30/2020 01:10:00 PM EDT [facility] Name Value Range Interpretation Code Description Data Aneta e(s) Supporting Document(s) Carestart Rapid COVID Antigen Test Negative [facility] This lab was ordered by [facility] and reported by [facility]. ID Date Data Source [id number] 12/30/2020 01:00:00 PM EDT [facility] Name Value Range Interpretation Code Description Data Aneta rce(s) Supporting Document(s) SARS-CoV-2 (COVID-19) N gene [Presence] in Respiratory specimen by MAMTA with probe detection POSITIVE [facility] This lab was ordered by [facility] and reported by [facility]. ID Date Data Source [id number] 12/08/2020 02:15:00 PM EST [facility] Name Value Range Interpretation Code Description Data Aneta rce(s) Supporting Document(s) SARS coronavirus 2 RNA [Presence] in Res piratory specimen by MAMTA with probe detection NEGATIVE [facility] This lab was ordered by [facility] and reported by [facility]. ID Date Data Source [id number] 12/08/2020 12:00:00 AM EST [facility] Name Value Range Interpretation Code Description Data Aneta rce(s) Supporting Document(s) Carestart Rapid COVID Antigen Test Negative [facility] This lab was reported by [facility]. Procedure Social History Code Duration Value Status Description Data Source(s ) Smoking 01/14/2021 12:00:00 AM EDT Never Smoker completed Never S moker eCW1 ([facility]) Patient Treatment Plan of Care Planned Activity Planned Date Details Description Data Source (s) 12 HR Guaifenesin 600 MG Extended Release Oral Tablet [Mucinex] 01/01/2021 12:00:00 AM EDT eCW1 ([facility]) benzonatate 100 MG Oral Capsule [Tessalon Perles] 01/01/2021 12: 00:00 AM EDT eCW1 ([facility])
--- NOTE | 2021-08-22 09:06 | REP ---
INDICATION: bruising, pain COMPARISON: None. TECHNIQUE: AP, lateral, bilateral oblique views right foot. FINDINGS: The osseous structures and joint spaces are intact and normal. There is no evidence for acute fracture or dislocation. Surrounding soft tissues are unremarkable. No subcutaneous emphysema or radiodense foreign body. IMPRESSION: . No acute fracture or dislocation. <Electronically signed by Edilson Calhoun > 08/22/21 [id number]
--- OUTSIDE RECORDS SUMMARY | 2021-08-22 10:15 | CCD ---
Author Author [facility] Organization [facility] Address Unknown Phone Unavailable Care Team Providers Care Wheelchair Van Operator First Responder Name Role Phone Maring, Will PA Unavailable [...] is protected by Article 27-F of the [facility] Public Health law. If you continue you may have access to information: Regarding HIV / AIDS; Provided by facilities licensed or operated by the [facility] Office of Mental Health; or Provided by the [facility] Office for People With Developmental Disabilities. If such information is present, then the following [facility] mandated warning applies: This information [...] law may result in a fine or long-term sentence or both. A general authorization for the release of medical or other information is NOT sufficient authorization for further disc losure. Encounters Encounter Providers Location Date Indications Data Source(s ) Outpatient Attender: Will LLOYD 08/06/20 02:16:12 PM EDT - 08/06/2021 03:56:20 PM EDT [facility] ([facility] ) Outpatient 05/28/2021 03:45:56 PM EDT - 021 04:36:14 PM EDT [facility] ([facility]) Outpatient Attender: Robert Spear PA-C 01/15/2021 03:40:48 PM EDT - 01/15/2021 04:23:58 PM EDT [facility] ([facility]) Unknown [address] [facility] [address] [address] 01/14/2021 12:00:00 AM EDT eCW1 ([facility]) Unknown [address] [facility] [place] [address] 01/01/2021 12:00:00 AM EDT eCW1 ([facility]) Outpatient Attender: CARMEN SORTO RPA 12/30 12:54:41 PM EDT - 12/30/2020 01:42:39 PM EDT [facility] ([facility] ) Outpatient 12/30/2020 12:25:25 PM EDT [facility] ([facility]) Outpatient 12/30/2020 12:21:20 PM EDT [facility] ([facility]) Outpatient Attender: Kylah LLOYD 021 01:57:02 PM EST - 12/08/2020 02:45:14 PM EST [facility] ([facility] ) Immunizations Vaccine Date Status Description Data Source(s) COVID-19 VACCINE Moderna 04/28/2021 12:00:00 AM EDT completed [facility] Vaccine Series Complete: YESThis Data wa s Submitted to [facility] Via [employer]. COVID-19 VACCINE Moderna 02/05/2021 12:00:00 AM EDT completed [facility] Vaccine Series Complete: NOThis Data was Submitted to [facility] [employer]. Medications Medication Brand Name Start Date Product Form Dose Route Admi nistrative Instructions Pharmacy Instructions Status Indications Reaction Description Data Source(s) 12 HR Guaifenesin 600 MG Extended Release Oral Tablet [Mucinex] Mucinex 600 MG Mucinex 600 MG 01/01/2021 12:00:00 AM EDT 1.0 {tablet_as_needed} active Mucinex 600 MG eCW1 ([facility]) 12 HR Guaifenesin 600 MG Extended Release Oral Tablet [Mucinex] Mucinex 600 MG Mucinex 600 MG 01/01/2021 12:00:00 AM EDT 1.0 {tablet_as_needed} active Mucinex 600 MG eCW1 ([facility]) benzonatate 100 MG Oral Capsule [Tessalon Perles] Hafsa dov Perles 100 MG Tessalon Perles 100 MG 01/01/2021 12:00:00 AM EDT 1.0 {capsule_as_nee ded} active Tessalon Perles 100 MG eCW1 ([facility]) benzonatate 100 MG Oral Capsule [Tessalon Perles] Hafsa dov Perles 100 MG Tessalon Perles 100 MG 01/01/2021 12:00:00 AM EDT 1.0 {capsule_as_nee ded} active Tessalon Perles 100 MG eCW1 ([facility]) Insurance Providers Payer name Policy type / Coverage type Policy ID Covered libertarian ID Covered libertarian's relationship to huynh Policy [place] Plan Information [employer] [id number] Self [id number] [employer] [id number] Self [id number] W2LS MARTH[place] emp [id number] Employee [id number] FELICIANO [id number] SP [id number] 100 [facility] [id number] S [id number] [place] [id number] SP [id number] Problems, Conditions, and Diagnoses No Information Surgeries/Procedures No Information Results ID Date Data Source [id number] 08/10/2021 12:00:00 AM EST [facility] Name Value Range Interpretation Code Description Data Aneta rce(s) Supporting Document(s) SARS-CoV2 Rapid Antigen Negative [facility] This lab was ordered by [facility] and reported by [facility]. ID Date Data Source [id number] 05/28/2021 04:30:00 PM EDT [facility] Name Value Range Interpretation Code Description Data Aneta rce(s) Supporting Document(s) SARS-CoV-2 RNA Resp Ql MAMTA+probe NOT DETECTED [facility] This lab was ordered by BARR[facility] bonilla and reported by [facility] Norris. ID Date Data Source [id number] 01/15/2021 12:00:00 AM EDT [facility] Name Value Range Interpretation Code Description Data Aneta rce(s) Supporting Document(s) Carestart Rapid COVID Antigen Test Negative [facility] This lab was reported by [facility]. ID Date Data Source [id number] 01/01/2021 06:21:00 AM EDT [facility] Name Value Range Interpretation Code Description Data Aneta rce(s) Supporting Document(s) COVID-19 RT-PCR APPRENTICE PAINTER NECKTIES SWAB Detected Abnormal (applies to no n-numeric results) [facility] A detected test result is [...] developed and its performance characteristics determined by [employer] and verified at [facility]. It has not been cleared or approved by the U.S. Food and Drug Administration for diagnostic use. This test has been authorized by FDA under an EUA for use by authorized laboratories. Results should be used in conjunction with clinical findings, and should not form the sole basis for a diagnosis or treatment decision. Methods: SARS-CoV-2 Multiplex RT-PCR Assay ID Date Data Source [id number] 12/30/2020 01:10:00 PM EDT [facility] Name Value Range Interpretation Code Description Data Aneta rce(s) Supporting Document(s) Carestart Rapid COVID Antigen Test Negative [facility] This lab was ordered by [facility] and reported by [facility]. ID Date Data Source [id number] 12/30/2020 01:00:00 PM EDT [facility] Name Value Range Interpretation Code Description Data Aneta rce(s) Supporting Document(s) SARS-CoV-2 (COVID-19) N gene [Presence] in Respiratory specimen by MAMTA with probe detection POSITIVE [facility] This lab was ordered by [facility] and reported by [facility]. ID Date Data Source [id number] 12/08/2020 02:15:00 PM EST [facility] Name Value Range Interpretation Code Description Data Aneta rce(s) Supporting Document(s) SARS coronavirus 2 RNA [Presence] in Res piratory specimen by MAMTA with probe detection NEGATIVE [facility] This lab was ordered by [facility] and reported by [facility]. ID Date Data Source [id number] 12/08/2020 12:00:00 AM EST [facility] Name Value Range Interpretation Code Description Data Aneta rce(s) Supporting Document(s) Carestart Rapid COVID Antigen Test Negative [facility] This lab was reported by [facility]. Procedure Social History Code Duration Value Status Description Data Source(s ) Smoking 01/14/2021 12:00:00 AM EDT Never Smoker completed Never S moker eCW1 ([facility]) Patient Treatment Plan of Care Planned Activity Planned Date Details Description Data Source (s) 12 HR Guaifenesin 600 MG Extended Release Oral Tablet [Mucinex] 01/01/2021 12:00:00 AM EDT eCW1 ([facility]) benzonatate 100 MG Oral Capsule [Tessalon Perles] 01/01/2021 12: 00:00 AM EDT eCW1 ([facility])
[2021-08-22] MEDS ORDERED: NAPR-837 PO (10:53)
[2021-08-22] MEDS ORDERED: CEPH500C PO (10:54)
[2021-08-22 11:01] VITALS: BP 137/88
== END 2021-08-22 11:03 | disposition home or self-care (01) ==
LOC: M ED 08:34
DX: L03.115 Cellulitis of right lower limb (principal); M79.671 Pain in right foot

== ENCOUNTER 2021-10-10 12:27 | Emergency (ER) | payer OTHER ==
[~2021-10-10] VITALS: Ht 188 cm; Wt 121.6 kg
[~2021-10-10 12:27] MED LIST changes: +CEPH500C PO
[2021-10-10 12:30] VITALS: BP 141/80
[2021-10-10] MEDS ORDERED: ACE65ERTAB PO (12:34)
[2021-10-12] MEDS ORDERED: IBUP-1022 (03:59)
[2021-10-12] MEDS ORDERED: TIZA10TA (03:59)
[2021-10-12] MEDS ORDERED: IBUP-1022 PO (05:21)
== END 2021-10-10 13:04 | disposition left against medical advice (07) ==
LOC: M ED 12:27
DX: Z53.21 Procedure and treatment not carried out due to patient leaving prior to being seen by health care provider (principal)

== ENCOUNTER → 2021-10-15 | Outpatient (CLI) | payer OTHER ==
[~2021-10-15] MED LIST changes: +ACE65ERTAB PO; +IBUP-1022; +IBUP-1022 PO; +TIZA10TA
== END ==
LOC: M PLAIMG 08:56
PROVIDERS: ATTEND Family Medicine
DX: M50.322 Other cervical disc degeneration at C5-C6 level (principal)